=== PATIENT | male | born 1960 | race Caucasian/White ===

== ENCOUNTER 2018-11-05 05:49 | Inpatient (IN) ==
[~2018-11-05 05:49] MED LIST: DOCUSATE 100 MG CAPSULE PO PRN; LIDOCAINE W/ SODIUM BICARB 0.5 ML SYR ONE; Lactated Ringers 1,000 ML PRIMARY IV ONE; Sodium Chloride 0.9% 250 ML ONE; Vancomycin Inj 1gm vial ONE
[2018-11-05] MEDS ORDERED: LIDOCAINE W/ SODIUM BICARB 0.5 ML SYR SUBD ONE (06:00)
[2018-11-05] MEDS ORDERED: Nasal Sanitizer POPSWAB ampule 3 AMP (Nozin) PREOP DOSE ENOS SCH (06:00)
[2018-11-05] MEDS ORDERED: ceFAZolin Inj 2gm (Premix) 2 GM/50 ML BAG IV ONE (06:00)
[2018-11-05] MEDS ORDERED: Lactated Ringers 1,000 ML PRIMARY IV ONE (06:00)
[2018-11-05] MEDS ORDERED: ceFAZolin Inj 3 GM in Sodium Chloride 0.9% 100 ML IV ONE (06:00)
[2018-11-05 06:21] LABS: BILIRUBIN,URINE NEGATIVE (NEG); CLARITY,URINE CLEAR (CLEAR); COLOR,URINE YELLOW (Y); GLUCOSE, URINE (UA) NEGATIVE (NEG); OCCULT BLOOD,URINE NEGATIVE (NEG); PH,URINE 6.5 (5.0-8.5); PROTEIN,URINE NEGATIVE (NEG); UROBILINOGEN,URINE 0.2 EU/dL (0.2)
[2018-11-05 06:30] LABS: URINE SAMPLE TYPE CLEAN CATCH URINE
[2018-11-05 06:31] LABS: BACTERIA,URINE RARE; SQUAMOUS EPITHELIAL CELL,UR MANY; URINE CASTS RARE
[2018-11-05] MEDS ORDERED: LIDOCAINE W/ SODIUM BICARB 0.5 ML SYR ONE (06:45)
[2018-11-05] MEDS ORDERED: LIDOCAINE HCL 1%/EPI 1:100,000 - 20 ML VIAL ONE (06:58)
[2018-11-05] MEDS ORDERED: BUPivacaine Inj 0.5% PF (5mg/ml) 10ml vial ONE ×2 (06:58→08:01)
[2018-11-05] MEDS ORDERED: Sodium Chloride 0.9% vial 10 ML ONE ×3 (06:59→11:20)
[2018-11-05] MEDS ORDERED: BACITRACIN 50,000 UNIT VIAL IRRIG ONE ×3 (06:59→11:20)
[2018-11-05] MEDS ORDERED: BUPIVACAINE 0.25% W/ EPI - 10 ML VIAL ONE (06:59)
[2018-11-05] MEDS ORDERED: LIDOCAINE HCL 2 % 10 ML JELLY URO-JECT TOPICAL ONE ×2 (07:02)
[2018-11-05] MEDS ORDERED: KETOROLAC 30 MG/1 ML VIAL ONE (07:08)
[2018-11-05] MEDS ORDERED: fentaNYL Inj 250 MCG/5 ML VIAL ONE ×3 (07:08→10:52)
[2018-11-05] MEDS ORDERED: ONDANSETRON 4 MG/2 ML VIAL ONE (07:08)
[2018-11-05] MEDS ORDERED: DEXAMETHASONE PF 10 MG/1 ML VIAL ONE (07:08)
[2018-11-05] MEDS ORDERED: LIDOCAINE MPF 2% - 5 ML (20 MG/1 ML) ONE (07:08)
[2018-11-05] MEDS ORDERED: PROPOFOL 10 MG/1 ML (200 MG/20 ML) VIAL IV ONE (07:08)
[2018-11-05] MEDS ORDERED: ROCURONIUM 10 MG/1 ML - 5 ML VIAL IVP ONE (07:10)
[2018-11-05] MEDS ORDERED: SUGAMMADEX SODIUM 200 MG/2 ML VIAL IV ONE (12:07)
[2018-11-05] MEDS ORDERED: ceFAZolin Inj 1 GM in Sodium Chloride 0.9% 100 ML IV ONE (12:08)
[2018-11-05] MEDS ORDERED: ceFAZolin 1 GM VIAL ONE (12:10)
[2018-11-05] MEDS ORDERED: Meperidine Inj 50 MG/ML CARPUJECT IVP PRN (12:27)
[2018-11-05] MEDS ORDERED: LIDOCAINE W/ SODIUM BICARB 0.5 ML SYR SUBD PRN (12:27)
[2018-11-05] MEDS ORDERED: fentaNYL Inj 100 MCG/2 ML VIAL IVP PRN (12:27)
[2018-11-05] MEDS ORDERED: HYDROmorphone 2 MG/1 ML IVP PRN (12:27)
[2018-11-05] MEDS ORDERED: Prochlorperazine Edisylate Inj 10mg/2ml vial IVP PRN ×2 (12:27→13:33)
[2018-11-05] MEDS ORDERED: Metoclopramide Inj 10 MG/2 ML VIAL IVP PRN ×2 (12:27→13:33)
[2018-11-05] MEDS ORDERED: MORPHINE SULFATE 2 MG/1 ML IVP PRN (12:27)
[2018-11-05] MEDS ORDERED: PROMETHAZINE 25 MG/1 ML VIAL IM PRN ×2 (12:27→13:33)
[2018-11-05] MEDS ORDERED: Lactated Ringers 1,000 ML PRIMARY IV SCH (12:30)
--- NOTE | 2018-11-05 12:30 | CRNA.PROGR ---
Anesthesia Recovery Phase I - Post Anesthesia Evaluation Patient's Condition on Arrival in Phase I: Stable (awake,drowsy,pain free) Pain Level: 0
--- NOTE | 2018-11-05 12:30 | CRNA.PROGR ---
Anesthesia Time - Procedure/Recovery Time Start Date: 11/05/18 End Date: 11/05/18 Anesthesia : Time In: 07:41 Anesthesia : Time Out: 12:21 Anesthesia : Total Time: 280 - Total Anesthesia Time Total Anesthesia Time (minutes): 280 - Other Weight: 122.016 kg Height: 6 ft Body Mass Index (BMI): 36.4 Physical Status: P3 Anesthesia Type: General Anesthesia : ET
[2018-11-05] MEDS ORDERED: HYDROmorphone 2 MG/1 ML ONE (12:48)
[2018-11-05] MEDS ORDERED: Ondansetron ODT Tab 4 MG TAB PO PRN (13:33)
[2018-11-05] MEDS ORDERED: DIAZEPAM 10 MG TABLET PO PRN (13:33)
[2018-11-05] MEDS ORDERED: HYDROcodone-APAP 5 MG -325 MG TABLET PO PRN (13:33)
[2018-11-05] MEDS ORDERED: Fleet Enema 133ml RECTAL PRN (13:33)
[2018-11-05] MEDS ORDERED: MAGNESIUM CITRATE 296 ML SOLUTION PO PRN (13:33)
[2018-11-05] MEDS ORDERED: HYDROcodone-APAP 7.5 MG-325 MG TABLET PO PRN (13:33)
[2018-11-05] MEDS ORDERED: ONDANSETRON 4 MG/2 ML VIAL IVP PRN (13:33)
[2018-11-05] MEDS ORDERED: Vancomycin-PHA to Dose IV SCH (13:33)
[2018-11-05] MEDS ORDERED: oxyCODONE-ACETAMINOPHEN 5-325 TAB PO PRN (13:33)
[2018-11-05] MEDS ORDERED: DIAZEPAM 10 MG/2 ML (5 MG/1 ML) CARPUJECT IVP PRN (13:33)
[2018-11-05] MEDS ORDERED: HYDROcodone-APAP 10 MG-325 MG TABLET PO PRN (13:33)
[2018-11-05] MEDS ORDERED: MAGNESIUM 400 MG/5 ML - 30 ML (MILK OF MAGNESIA) PO PRN (13:33)
[2018-11-05] MEDS ORDERED: BISACODYL 5 MG TABLET PO PRN (13:33)
[2018-11-05] MEDS ORDERED: oxyCODONE/APAP 7.5/325 Tab 1 TAB TAB PO PRN (13:33)
[2018-11-05] MEDS: oxyCODONE/APAP 10/325 Tab 1 EACH TAB PO PRN ×3 (14:31→22:33)
[2018-11-05] MEDS: GABAPENTIN 300 MG CAPSULE PO SCH ×3 (15:33→22:33)
--- NOTE | 2018-11-05 17:50 | GEN.OPNOTE ---
Operative Note Surgery Date: 11/05/18 Preoperative Diagnosis: 1. Low back pain. 2. Right hip and right leg pain. 3. Multilevel lumbar degenerative disc disease. 4. Multilevel lumbar spondylosis markedly advanced at the L5-S1 level bilaterally with marked overgrowth of the facet joints and widening of the facet joints. and fluid in the facet joints. 5. Right L5-S1 extruded synovial cyst. 6. Multilevel lumbar congenital canal stenosis with severe central canal stenosis superimposed degenerative changes L5-S1. 7. Severe bilateral lateral recess stenosis L5-S1. 8. Severe right and moderate left L5-S1 neural foraminal stenosis. 9. Status post L5-S1 lumbar laminectomy. Postoperative Diagnosis: 1. Low back pain. 2. Right hip and right leg pain. 3. Multilevel lumbar degenerative disc disease. 4. Multilevel lumbar spondylosis markedly advanced at the L5-S1 level bilaterally with marked overgrowth of the facet joints and widening of the facet joints. and fluid in the facet joints. 5. Right L5-S1 extruded synovial cyst. 6. Multilevel lumbar congenital canal stenosis with severe central canal stenosis superimposed degenerative changes L5-S1. 7. Severe bilateral lateral recess stenosis L5-S1. 8. Severe right and moderate left L5-S1 neural foraminal stenosis. 9. Status post L5-S1 lumbar laminectomy. Procedure: 1.) Anterior approach, L5-S1 discectomy, and anterior arthrodesis L5- S1 interspace for lumbar interbody fusion. (CPT code: 07150-26). 2.) Insertion of a 29 mm x 40 mm x 20 mm 14 degree lordotic Shashank Arcadius XP anterior lumbar interbody cage filled with allograft into the L5-S1 disc space affixed to the L5 and S1 endplates with intrinsic hardware of the cage. (CPT code: 94159). 3.) Use of 2 x 2 cm [employer] Active Barrier (implantable allograft), 1 cc Cerapedics i-FACTOR (implantable allograft), and 12 cc Shashank BIO DBM Plus Putty with cancellous for filling of the anterior lumbar cage. (CPT code: 49361). 4.) Use of intra-operative fluoroscopy for localization of correct surgical level and for confirmation of final position of intervertebral cage and integral screw fixation. 5.) Use of neuromonitoring including EMG's and SSEP's. Surgeon: Vincent Trujillo MD Toolsmith: DANIELLE Dougherty Anesthesia Provider: Carlos Lackey MD Anesthesia Type: General Estimated Blood Loss (mL): 500 Fluids: See anesthesia record Pathology: None Indications: Mr. Moore is a 58 year old gentleman status post a L3-5 laminectomy performed in November [address] Black in [place]. He did well following this surgery and returned to work in February 2018. In April 2018 thru June 2018, Mr. Moore was going to physical therapy which increased his low back pain. Mr. Moore states he has lost 20 pounds and has quit smoking since his last visit. Mr. Moore states he has continued low back pain. He reports he gets shooting pain down both of his legs with the right being worse than the left. He has bilateral foot numbness, on his right side the numbness goes up his ankle. Mr. Moore states his right leg is weak. He had imaging studies that demonstrated multilevel lumbar degenerative disc disease and multilevel lumbar spondylosis with facet arthropathy and hypertrophy moderate in degree at the L3-4 and L4-5 levels, but advanced and marked at the L5-S1 level with widening of the facets and fluid in the facet joints at that level. The study demonstrated multilevel lumbar congenital canal stenosis with persistent severe lumbar central canal stenosis at the L5-S1 level the level of his previous laminectomy with severe right and moderate left neuroforaminal stenosis at this level. Mr. Moore had seen several surgeons with different surgical plans being suggested. We had discussed proceeding with a L5-S1 anterior lumbar interbody fusion with subsequent redo decompression and posterolateral instrumented fusion in a staged fashion. He wished to proceed with the surgical procedures and presents today for the first stage of the procedure. Findings: None Complications: None Operative Summary: Mr. Moore was met in the preoperative area. His surgical history and physical and his surgical chart was reviewed. The procedure to be performed was confirmed with Mr. Moore and we were both in agreement on the procedure to be performed and this matched what was written on his consent form. Any questions of Mr. Moore or family members had were answered before he was taken back to the operating room suite. Mr. Moore was brought back to the operating room suite and moved over onto the surgical bed in supine position. General anesthesia was induced and he was intubated by the anesthesia staff. He had a Bello catheter placed in his bladder for the procedure. He had pneumatic compression hose placed on his lower legs bilaterally. All bony prominences were well padded. His arms were tucked at the sides. Mr. Moore was prepped and draped in the usual and standard fashion. He was given 2 g of Ancef and a gram of vancomycin IV for perioperative antibiosis. A standard surgical timeout was performed identifying the correct patient, the correct procedure, and the correct equipment being being available for the procedure. The anterior exposure to the lumbar spine was performed by Dr. Umang Peacock and that portion of the procedure to be dictated separately by him. With the L5-S1 level now exposed anteriorly from Dr. Peacock's dissection and exposure of the anterior lumbar spine I performed a L5-S1 discectomy by removing the entire L5- S1 disc as well as the annulus posteriorly until the posterior longitudinal ligament was exposed in the very dorsal aspect of the disc space. The disc material was removed laterally bilaterally to the annulus of the disc space. To remove the disc the anterior annulus was incised with a 10 blade scalpel along the anterior inferior L5 endplate and the anterior superior S1 endplate. The disc material was removed with pituitary rongeur as well as a skin punch and by loosening disc material with straight and up angled curettes and the ring curet. Arthrodesis of the L5 and S1 endplates was performed with the large straight curette, the ring curet, and the rasp. The interspace was sized for the appropriate anterior lumbar interbody cage using the trial sizers. The interspace fit the large footprint sizer and to most appropriately fit the disc space a 29 mm x 40 mm x 20 mm 14 lordotic Shashank [place] AP anterior lumbar interbody cage was selected. The cage was filled with a 2 cm x 2 cm [employer] Active Barrier (implantable allograft) which was sandwiched between 1 cc of Cerapdics i-FACTOR (implantable allograft), with both of these products and being sandwiched between 12 mL of Sigel BIO DBM Plus Putty with cancellous. The cage was then inserted into the L5-S1 interspace using the [employer] advertising inserter. AP and lateral radiographic images were obtained. The cage was noted to be somewhat to the left of midline. The cage was removed and reinserted into the disc space more to the right side of the interspace with a subsequent AP fluoroscopic image demonstrating the cage to be more centered in the disc space. The cage was then gently countersunk with a bone tamp and mallet. The cage obtained good purchase between the L5 and S1 endplates. AP and lateral fluoroscopic images were obtained. The cage was then affixed to the L5 and S1 endplates using the 35 mm compression screws. Good purchase was obtained to the L5 and S1 endplates. The screws were tightened until they locked into the anterior aspect of the L5-S1 biomechanical device. Final AP and lateral fluoroscopic images demonstrated the cage against intrinsic hardware of the cage the two rostral screws and draped into the L5 endplate and the two caudal screws entering into the S1 endplates to all be in good position. At this portion of the procedure Dr. Peacock took over and performed the closure of the anterior approach to to the lumbar spine. All surgical drapes were then removed from Mr. Moore. He was carefully moved over onto the PACU stretcher. He was awoken and extubated by the anesthesia staff. He was taken to the recovery room in stable condition. All surgical counts reported as correct by the scrub and circulating personnel. A physician's patient assistant, Mrs. Jenni Wu PA-C, assisted with the procedure including Dr. Álvaro Morse exposure and closure portions of the procedure as well as with my portion of the procedure the L5-S1 discectomy, the arthrodesis of the L5 and S1 endplates, and the placement of the L5-S1 biomechanical device/cage into the L5-S1 interspace. She provided assistance with these portions of the procedure including retraction, irrigation, and suctioning including her assistance with the exposure and closure for the procedure.
[2018-11-05] MEDS: PANTOPRAZOLE 40 MG TABLET PO SCH (17:54)
--- NOTE | 2018-11-05 18:40 | NEURO.PROG ---
Subjective Post Op Day: 0 Pain Management: PO Bello Catheter: Yes Diet: Regular Ambulating: Yes Additional Details: Awake and alert. No complaints. Appears comfortable in bed. Moving all extremities well. Continue post-operative antibiotics. Continue post-operative pain control. Second stage (posterior decompression/instrumentation/fusion) planned for Monday. Objective : Data - Vital Signs Vital Signs and I&O: Vital Signs - Last Taken Temperature 97.3 F 11/05/18 16:24 Pulse Rate 71 11/05/18 16:24 Respiratory Rate 16 11/05/18 16:24 Blood Pressure 124/74 11/05/18 16:24 Pulse Ox 98 11/05/18 16:24 Intake and Output (24hr x 4 totals) 11/03/18 11/04/18 11/05/18 11/06/18 05:59 05:59 05:59 05:59 Intake Total 5690 / 5690 Output Total 1850 / 1850 Balance 3840 / 3840
[2018-11-05] MEDS: ATORVASTATIN 40 MG TABLET PO SCH (21:23)
[2018-11-05] MEDS: ceFAZolin Inj 1 GM in Sodium Chloride 0.9% 100 ML IV SCH (21:24)
--- NOTE | 2018-11-05 21:55 | PDOC ---
HPI - History of Present Illness Date of Service: 11/05/18 Time of Service: 21:49 Chief Complaint: back pain History of Present Illness: This is a very pleasant 58 YO that developed chronic back pain over severalyears. 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 Conservative therapy with PT/OT, injections, shock therapy, did not help. Had a laminectomy last year and healed up well. Went back to work and did well, but then pain got worse. Has been taking tramadol to help with edge of pain, but had first part of anterior posterior fusion today. PT made pain worse. States he quit smoking a month ago on chantix to help his bone healing. Pain prior to surgery already seems better. No chest pain, SOB, or N/V post surgery right now. Has a scratchy throat. Attributes to phlegm from quitting smoking. Currently post operative pain well controlled. Past Medical History Medical History: 1. Gouty arthropathy. 2. CAD, s/p stents, most recently in 2017. 3. KATHIA on CPAP therapy. 4. HTN. 5. Hypercholesterolemia. 6. Chronic back pain Surgical History: 1. heart stents. 2. rotator cuff thrapy. 3. right ankle surgery. 4. back surgery Pertinent Family History: mother alive, had history of stroke, right hemiparesis; father from accident Past Social History: occasional alcoholic beverage, , three children all healthy, lives in [place]. quit smoking a month ago. 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 Tobacco Use: Former Smoker Do you dip or chew tobacco: No In the Past 12 Months, Have Used or Abuse Any of the Following Substance: None Alcohol Use: None Medication / Allergies Home Medications: Home Medications Medication Instructions Recorded Confirmed B-complex with vitamin C tablet 1 tab PO QDAY 08/29/18 11/02/18 allopurinol 300 mg tablet 300 mg PO QDAY 08/29/18 11/02/18 atenolol 25 mg tablet 25 mg PO QDAY 08/29/18 11/02/18 atorvastatin 40 mg tablet 40 mg PO QDAY 08/29/18 11/02/18 bupropion HCl XL 150 mg 24 hr 300 mg PO QAM tab 08/29/18 11/02/18 tablet, extended release chlorthalidone 25 mg tablet 25 mg PO QDAY 08/29/18 11/02/18 citalopram 10 mg tablet 20 mg PO QDAY tab 08/29/18 11/02/18 clopidogrel 75 mg tablet 75 mg PO QDAY 08/29/18 11/02/18 gabapentin 300 mg capsule 300 mg PO TID 08/29/18 11/02/18 multivitamin tablet 1 tab PO QAM 08/29/18 11/02/18 pantoprazole 40 mg tablet,delayed 40 mg PO BID 08/29/18 11/02/18 release potassium chloride ER 10 mEq 10 meq PO QDAY 08/29/18 11/02/18 tablet,extended release ramipril 5 mg capsule 5 mg PO QDAY 08/29/18 11/02/18 tramadol 50 mg tablet 50 mg PO Q6H 08/29/18 11/02/18 Allergies/Adverse Reactions: Allergies Allergy/AdvReac Type Severity Reaction Status Date / Time No Known Allergies Allergy Verified 11/05/18 18:32 Review of Systems - Constitutional Constitutional: REPORTS: Negative System Review - Respiratory Respiratory: REPORTS: Negative System Review - Cardiovascular Cardiovascular: REPORTS: Negative System Review - Gastrointestinal Gastrointestinal / Abdominal: REPORTS: Negative System Review - Genitourinary Genitourinary: REPORTS: Other (remote history of urine infections in youth, last at age 67 years old) - Musculoskeletal Musculoskeletal: REPORTS: Back Pain - Neurological Neurologic: REPORTS: Negative System Review Exam - Vitals Vital Signs: Vital Signs Temperature 98.5 F Temperature Source Temporal Artery Scan Pulse Rate [Pulse Oximeter] 86 Pulse Rate [Pulse Oximeter] 83 Pulse Rate 90 Respiratory Rate 21 Blood Pressure [Left Arm] 121/64 Blood Pressure [Left Arm] 134/81 Blood Pressure 133/76 Pulse Ox 96 Oxygen Flow Rate 2 Oxygen Delivery Method Nasal Cannula Height 6 ft Weight 269 lb - General General Appearance: No Acute Distress, Cooperative - Head Head Exam: Normal Inspection, Normocephalic, Atraumatic - Eye Eye Exam: POSITIVE: No Scleral Icterus - ENT ENT Exam: POSITIVE: Mucous Membranes Moist - Neck Neck Exam: Normal Inspection, No Tenderness, No Lymphadenopathy, No Thyromegaly, JVP is not Raised - Respiratory Respiratory Exam: POSITIVE: Clear to Auscultation - Bilaterally, Breathing Non Labored - Cardiovascular Cardiovascular Exam: POSITIVE: RRR, No Murmur, No Clicks, No Gallops, No Rubs, No JVD - GI/Abdominal GI/Abdominal Exam: POSITIVE: Normal Bowel Sounds, Non Tender, Non Distended, Soft - Rectal Rectal Exam: POSITIVE: Deferred - External Exam: POSITIVE: Deferred Exam: POSITIVE: Deferred - Extremities Extremities Exam: POSITIVE: No Clubbing Present, No Edema Present, No Cyanosis Present - Neurological Neurological Exam: POSITIVE: Alert, Oriented x 3, No Facial Droop, Speech Intact / Clear, Moves All Extremities Equally - Psychiatric Psychiatric Exam: POSITIVE: Normal Affect, Normal Mood Results - Labs Additional Lab Results: Urinalysis on my view is negative review. Assessment and Plan - Patient Problems (1) CAD (coronary artery disease) Current Visit: Yes Status: Acute Code(s): I25.10 - Atherosclerotic heart disease of standing [place] coronary artery without angina pectoris Qualifiers: Coronary Disease-Associated Artery/Lesion type: [place] artery [place] vs. transplanted heart: standing [place] heart Associated angina: without angina Qualified Code(s): I25.10 - Atherosclerotic heart disease of standing [place] coronary artery without angina pectoris (2) HTN (hypertension) Current Visit: Yes Status: Acute Code(s): I10 - Essential (primary) hypertension Qualifiers: Hypertension type: essential hypertension Qualified Code(s): I10 - Essential (primary) hypertension (3) Hypercholesterolemia Current Visit: Yes Status: Acute Code(s): E78.00 - Pure hypercholesterolemia, unspecified (4) Gouty arthropathy Current Visit: Yes Status: Acute Code(s): M10.9 - Gout, unspecified (5) Chronic back pain Current Visit: Yes Status: Acute Code(s): M54.9 - Dorsalgia, unspecified; G89.29 - Other chronic pain Qualifiers: Back pain location: low back pain Back pain laterality: unspecified Sciatica presence: with sciatica Sciatica laterality: sciatica laterality unspecified Qualified Code(s): M54.40 - Lumbago with sciatica, unspecified side; G89.29 - Other chronic pain (6) Hyperthyroidism Current Visit: Yes Status: Chronic Code(s): E05.90 - Thyrotoxicosis, unspecified without thyrotoxic crisis or storm (7) Status post lumbar surgery Current Visit: Yes Status: Acute Code(s): Z98.890 - Other specified postprocedural states - Assessment / Plan Additional Assessment/Plan Details: Adjusted Neurontin to home dose to prevent any withdrawal seizures from this medication from home dose. Resume Chantix when possible. Adjust ramipril to by mouth dosing at nighttime as he takes at home. Medications were loss but we were able to locate that they were locked up in pharmacy and they will start with pharmacy tomorrow after verification including his Chantix which I would like to resume as soon as possible. Thus far, no evidence of any compromise to heart condition post operatively, no completes of chest pain. After posterior approach, would like to resume aspirin when possible.
[2018-11-05] MEDS: RAMIPRIL 2.5 MG CAPSULE PO SCH (22:33)
[2018-11-06] MEDS ORDERED: LIDOCAINE HCL 2 % 10 ML JELLY URO-JECT TOPICAL PRN (01:47)
[2018-11-06] MEDS: oxyCODONE/APAP 10/325 Tab 1 EACH TAB PO PRN ×6 (02:09→21:15)
[2018-11-06] MEDS: ceFAZolin Inj 1 GM in Sodium Chloride 0.9% 100 ML IV SCH (03:53)
[2018-11-06 04:50] LABS: BASOPHILS # (AUTO) 0.01 10*3/UL; BASOPHILS % (AUTO) 0.1 % (0-1); EOSINOPHILS # (AUTO) 0.02 10*3/UL; EOSINOPHILS % (AUTO) 0.2 % (0-8); Hematocrit [HCT] 37.7 % (42.0-52.0); Hemoglobin [HGB] 12.2 g/dL (14.0-18.0); LYMPHOCYTES # (AUTO) 0.77 10*3/uL; MEAN CORPUSCULAR HGB CONC 32.4 g/dL (33-37); MEAN CORPUSCULAR VOLUME 95.7 FL (80-90); MEAN PLATELET VOLUME 11.1 FL (7.4-12.2); MONOCYTES # (AUTO) 0.93 10*3/UL (0.3-0.8); MONOCYTES % (AUTO) 7.6 % (5-15); NEUTROPHILS # (AUTO) 10.42 10*3/UL; NEUTROPHILS % (AUTO) 85.6 % (50-80); RED BLOOD COUNT 3.94 10^6/uL (4.70-6.10)
[2018-11-06 04:52] LABS: BLOOD UREA NITROGEN 14 mg/dL (7-22)
[2018-11-06 05:09] LABS: PLATELET MORPHOLOGY COMMENT NORMAL MORPHOLOGY (NORM); RBC MORPHOLOGY COMMENT NORMAL MORPHOLOGY (NORM); WBC MORPHOLOGY COMMENT NORMAL MORPHOLOGY (NORM)
[2018-11-06] MEDS ORDERED: PANTOPRAZOLE 40 MG TABLET PO SCH (07:00)
--- NOTE | 2018-11-06 07:37 | NEURO.PROG ---
Subjective Post Op Day: 1 Pain Management: PO Jang Catheter: Yes Flatus: Yes Diet: Regular Ambulating: No Additional Details: Dr Trujillo here for rounds. Mr Moore is awake and alert and says he feels good. He states that his pre op symptoms of thigh pain and burning and cold feet are all gone. He is sitting up in bed with breakfast. He is afebrile, VSS, positive bowel sounds, and good bilateral leg strength. Feet are warm to touch with intact dorsalis pedis pulses bilaterally. He states he is ready to proceed tomorrow with stage [address] Peacock called and was given a report. Plan mobilize today, keep jang catheter, shower and NPO after midnight for surgery in AM Objective : Data - Labs CBC and BMP: 11/06/18 04:08 11/06/18 04:08 - Vital Signs Vital Signs and I&O: Vital Signs - Last Taken Temperature 97 F 11/06/18 06:53 Pulse Rate 72 11/06/18 06:53 Respiratory Rate 17 11/06/18 06:53 Blood Pressure 120/73 11/06/18 06:53 Pulse Ox 97 11/06/18 06:53 Intake and Output (24hr x 4 totals) 11/04/18 11/05/18 11/06/18 11/07/18 05:59 05:59 05:59 05:59 Intake Total 6530 / 8271 2190 Output Total 3150 / 3150 Balance 3380 / 5121 2190
[2018-11-06] MEDS: CITALOPRAM 20 MG TABLET PO SCH (08:29)
[2018-11-06] MEDS: PANTOPRAZOLE 40 MG TABLET PO SCH ×2 (08:29→15:38)
[2018-11-06] MEDS: Potassium Chloride Tab 10 MEQ TAB PO SCH (08:29)
[2018-11-06] MEDS: ATENOLOL 25 MG TABLET PO SCH (08:29)
[2018-11-06] MEDS: GABAPENTIN 300 MG CAPSULE PO SCH ×3 (08:30→21:14)
[2018-11-06] MEDS: CHLORTHALIDONE 50 MG TABLET PO SCH (08:30)
[2018-11-06] MEDS: ALLOPURINOL 300 MG TABLET PO SCH (08:30)
[2018-11-06] MEDS: buPROPion XL Tab 150 MG TAB PO SCH (08:30)
[2018-11-06] MEDS: Multivitamin Tab 1 TAB PO SCH (08:30)
[2018-11-06] MEDS ORDERED: RAMIPRIL 2.5 MG CAPSULE PO SCH (09:00)
--- NOTE | 2018-11-06 14:31 | PTI REPORT ---
Thank you for the referral of Nahun Moore. He was seen on 11/06/18 for an inpatient evaluation status post lumbar fusion with an anterior approach. SUBJECTIVE: The patient is a 58-year-old male who underwent a lumbar fusion with an anterior approach yesterday. The patient states that he is doing fairly well this morning. He reports that he did undergo a laminectomy in November of last year which did not help with his symptoms as he has been having symptoms into his right lower extremity and tingling of his bilateral feet. The patient states that since his surgery he is no longer having tingling into his feet and his pain in his right side is doing well but he is complaining of surgical pain but is willing to get up and move around. Per patient's report he is to undergo another lumbar fusion tomorrow with a posterior approach. The patient states that he lives in [place] with his . He states that their home is a muti- level home with eight stairs to get onto the main floor and an additional eight to get up to the bedroom. The patient states that prior to his surgery he was getting around independent of an assistive device and denies any falls in the last three months. PAST MEDICAL HISTORY: Past medical history can be found in the patient's medical record. OBJECTIVE FINDINGS: General observations: The patient was alert and oriented to setting upon PT arrival. The patient was instructed in lumbar precautions prior to transferring from supine to seated edge of bed. The patient was instructed on no bending/lifting/twisting and that he is to wear his abdominal binder at this time whenever he is up and moving. Per surgeon's orders we will get him an [employer]green back brace tomorrow after his posterior approach with the lumbar fusion. Bed mobility: The patient was instructed on how to do a log roll and the patient needed max cueing both tactile and verbal in order to perform a log roll to sit up in bed. The patient was unable to sit all the way up initially due to pain and did also snap the IV on his right hand so we did have to get the nursing staff in to help take care of that. The patient complained of pain at his incision site and soreness and he did need to sit edge of bed for approximately 10 minutes. The patient transferred back into bed and did need mod assist x1 in order to perform a log roll back into bed. Transfers: The patient was able to go from sitting to standing with contact guard assist x1 for safety. A gait belt was placed around him and the patient was able to don the abdominal binder. Ambulation: The patient ambulated approximately 10 feet. He was a little unsteady so he did get a front wheeled walker. The patient was able to step onto and off of the scale with contact guard assist x1 for safety. With the walker the patient was able to ambulate an additional 75 feet with contact guard assist x1 for safety. The patient did need to take rest breaks at times secondary to pain of his abdomen. The patient stated that he was surprised that his feet were warm and that he was not having the pain into his right glut that he was having prior to his surgery. ASSESSMENT: The patient has fair rehab potential secondary to his age. He is to undergo another surgical procedure tomorrow. Problem List: Patient is status post lumbar fusion with anterior approach Short-Term Goals: To be met by discharge from inpatient: Patient will be able to transfer from bed to stand safely and independently. Patient will be able to perform a log roll correctly into and out of bed independently. Patient will be able to don and doff brace independently. Patient will be able to ambulate at least 150 feet safely and independently with least restrictive assistive device. Patient will be able to ascend and descend one flight of stairs safely with assistive device. Long-Term Goals: To be met following discharge from inpatient: Patient will undergo surgery tomorrow and we will assess where he is at at that point. Outpatient therapy may be appropriate for the patient once he is fully discharged. TREATMENT PLAN: Patient will be seen B.I.D during the week and one time per day over the weekend as an inpatient to address the above goals and objectives. We will reassess after the patient has his other surgery tomorrow and make any necessary adjustments to our goals. INITIAL TREATMENT: Treatment today consisted of the initial evaluation and one unit of functional activity. Following treatment the patient was left in bed. SCDs were placed back around the patient and his call light was placed within reach. [facility]ITALPatricia
--- NOTE | 2018-11-06 14:53 | PDOC(PROG) ---
Date of Service: 11/06/18 Time of Service: 14:50 Interval History: patient seen and evaluated earlier today no chest pain, no SOB, no nausea or vomiting. pain controlled states pain presurgery has resolved. Objective : Data - Labs CBC and BMP: 11/06/18 04:08 11/06/18 04:08 Objective : Exam - General General Appearance: No Acute Distress, Cooperative Additional General Exam Details: Vital Signs - Last Taken Temperature 98.1 F 11/06/18 11:14 Pulse Rate 61 11/06/18 11:14 Respiratory Rate 17 11/06/18 11:14 Blood Pressure 115/68 11/06/18 11:14 Pulse Ox 95 11/06/18 11:14 - Eye Eye Exam: No Scleral Icterus - ENT ENT Exam: Mucous Membranes Moist - Neck Neck Exam: JVP is not Raised - Respiratory Respiratory Exam: Clear to Auscultation - Bilaterally, Breathing Non Labored - Cardiovascular Cardiovascular Exam: RRR, No Murmur, No Clicks, No Gallops, No Rubs, No JVD - GI/Abdominal GI/Abdominal Exam: Normal Bowel Sounds, Non Tender, Non Distended, Soft - Extremities Extremities Exam: No Edema Present - Neurological Neurological Exam: Alert, Oriented x 3, No Facial Droop, Speech Intact / Clear, Moves All Extremities Equally Assessment and Plan - Patient Problems (1) CAD (coronary artery disease) Current Visit: Yes Status: Acute Code(s): I25.10 - Atherosclerotic heart disease of [place] coronary artery without angina pectoris Qualifiers: Coronary Disease-Associated Artery/Lesion type: [place] artery [place] vs. transplanted heart: [place] heart Associated angina: without angina Qualified Code(s): I25.10 - Atherosclerotic heart disease of [place] coronary artery without angina pectoris (2) HTN (hypertension) Current Visit: Yes Status: Acute Code(s): I10 - Essential (primary) hypertension Qualifiers: Hypertension type: essential hypertension Qualified Code(s): I10 - E ssential (primary) hypertension (3) Hypercholesterolemia Current Visit: Yes Status: Acute Code(s): E78.00 - Pure hypercholesterolemia, unspecified (4) Gouty arthropathy Current Visit: Yes Status: Acute Code(s): M10.9 - Gout, unspecified (5) Chronic back pain Current Visit: Yes Status: Acute Code(s): M54.9 - Dorsalgia, unspecified; G89.29 - Other chronic pain Qualifiers: Back pain location: low back pain Back pain laterality: unspecified Sciatica presence: with sciatica Sciatica laterality: sciatica laterality unspecified Qualified Code(s): M54.40 - Lumbago with sciatica, unspecified side; G89.29 - Other chronic pain (6) Hyperthyroidism Current Visit: Yes Status: Chronic Code(s): E05.90 - Thyrotoxicosis, unspecified without thyrotoxic crisis or storm (7) Status post lumbar surgery Current Visit: Yes Status: Acute Code(s): Z98.890 - Other specified postprocedural states - Assessment / Plan Additional Assessment/Plan Details: no change to plan from hospitalist side PT and OT surgery per Dr. Trujillo resume aspirin post surgery when possible for CAD
--- NOTE | 2018-11-06 15:11 | OTI REPORT ---
Thank you for the referral of Nahun Moore. He was seen on 11/06/18 for an occupational therapy inpatient evaluation status post lumbar fusion. SUBJECTIVE: The patient is a 58-year-old male. The patient is from [place], [place]. His family was present during the session today. Prior to admission the patient had undergone a laminectomy last year in November. Currently the patient had an anterior approach lumbar fusion and tomorrow he will receive a lumbar fusion with a posterior approach. The patient does have stairs to enter his home. They do have a chair that is already installed in their shower, but they do need handles around the higher toilet as she states there is nothing for him to hang onto when trying to complete sit to stands. The patient reports his pain is a 6/10 on the verbal analog scale (0=no pain, 10=worst pain). His goal is to be able to go home and recover and to be able to complete simple ADLs independently. PAST MEDICAL HISTORY: Past medical history can be found in the patient's medical record. OBJECTIVE FINDINGS: Bed mobility: The patient was able to come from supine to sit with mod assist. He had difficulty with his log rolling and his pain increased to an 8/10 when sitting edge of bed. Nursing staff did have to come in to work on his IVs. Activities of daily living: The patient was instructed on how to use the line director and a sock aide. He was able to use both with moderate verbal cues. He was also issued a bath sponge and a shoe horn for increased independence with ADLs at home. The patient did receive toilet handles that will be installed on the back of the higher toilet seat in order for the patient to be able to come from sit to stand while pushing off handles. Ambulation: The patient ambulated to the sink to complete hygiene activities x2 minutes. Endurance: The patient does fatigue easily. ASSESSMENT: Problem List: Patient would benefit from education on adaptive devices for lower extremity dressing Decreased ability to complete functional transfers Decreased ability to complete ADLs Short-Term Goals: To be met by discharge from inpatient: Patient will be able to use adaptive devices to complete lower extremity dressing with modified independence. Patient will be able to complete all functional transfers with stand by assist. Patient will be able to complete log rolling in bed independently. Patient will be able to don and doff brace independently. Long-Term Goals: To be met following discharge from inpatient: Patient will return home, demonstrating independence and safety with ADLs and functional transfers. TREATMENT PLAN: Patient will be seen B.I.D during the week and one time per day over the weekend as an inpatient to address the above goals and objectives. INITIAL TREATMENT: Treatment today consisted of the initial evaluation followed by the patient completing lower extremity dressing with adaptive devices and log rolling from supine to sit. The patient then functionally transferred to the sink. The patient did have some shooting pain down the leg when doing this even with his brace on. He will be going in for surgery tomorrow. He would benefit from a session after his surgery to make sure that he can still use adaptive devices appropriately and independently. HUI
--- NOTE | 2018-11-06 15:50 | PT.PROG ---
Progress Note Progress Note: S. Patient stated he is feeling alright this afternoon, he agreed to go for a walk. O. Patient ambulated 200 feet in the rudd and back to his room where he was left in his chair with alarm and call light. A. Patient tolerated ambulation well, he was able to ambulate with stand by guard assist. Patient would benefit from skilled therapy to increase strength and mobility. P. Continue POC.
[2018-11-06] MEDS ORDERED: SIMETHICONE 80 MG TABLET PO PRN (17:30)
[2018-11-06] MEDS: MORPHINE SULFATE 2 MG/1 ML IVP PRN ×2 (18:15→22:12)
[2018-11-06] MEDS: ATORVASTATIN 40 MG TABLET PO SCH (21:14)
[2018-11-06] MEDS: RAMIPRIL 2.5 MG CAPSULE PO SCH (21:15)
[2018-11-06] MEDS ORDERED: VARENICLINE 1 MG PO SCH (22:00)
[2018-11-06] MEDS: VARENICLINE PO SCH (22:55)
[2018-11-07] MEDS: oxyCODONE/APAP 10/325 Tab 1 EACH TAB PO PRN ×2 (01:23→05:14)
--- NOTE | 2018-11-07 06:05 | NEURO.PROG ---
Subjective Post Op Day: 2 Bello Catheter: Yes Flatus: Yes Diet: NPO Ambulating: Yes Additional Details: Mr Moore is awake and alert. States he feels ready for his surgery today. He has been NPO since midnight. He has had a low grade temp and we talked about being up and around this morning and working with his incentive spirometer. His abdomen is soft and non tender, with positive bowel sounds. States he feels like he needs to have a BM. His feet are warm with bilateral pulses and he says that his preop pain and burning symptoms in his thighs and buttocks are still gone. Plan this morning to mobilize, use his incentive spirometer and shower in preparation for surgery later today. Objective : Data - Labs CBC and BMP: 11/06/18 04:08 11/06/18 04:08 - Vital Signs Vital Signs and I&O: Vital Signs - Last Taken Temperature 99.1 F 11/07/18 05:00 Pulse Rate 83 11/07/18 05:00 Respiratory Rate 16 11/07/18 05:00 Blood Pressure 120/71 11/07/18 05:00 Pulse Ox 95 11/07/18 05:00 Intake and Output (24hr x 4 totals) 11/04/18 11/05/18 11/06/18 11/07/18 05:59 05:59 05:59 05:59 Intake Total 6530 / 8271 5442 / 5442 Output Total 3150 / 3150 2400 / 2400 Balance 3380 / 5121 3042 / 3042
[2018-11-07] MEDS ORDERED: Lactated Ringers 1,000 ML PRIMARY IV ONE ×3 (07:33→10:59)
[2018-11-07] MEDS: PANTOPRAZOLE 40 MG TABLET PO SCH (07:47)
[2018-11-07] MEDS: ATENOLOL 25 MG TABLET PO SCH (08:03)
[2018-11-07] MEDS: CHLORTHALIDONE 50 MG TABLET PO SCH (08:53)
[2018-11-07] MEDS: GABAPENTIN 300 MG CAPSULE PO SCH (08:53)
[2018-11-07] MEDS: Potassium Chloride Tab 10 MEQ TAB PO SCH (08:53)
[2018-11-07] MEDS: CITALOPRAM 20 MG TABLET PO SCH (08:53)
[2018-11-07] MEDS: Multivitamin Tab 1 TAB PO SCH (08:54)
[2018-11-07] MEDS: buPROPion XL Tab 150 MG TAB PO SCH (08:54)
[2018-11-07] MEDS: VARENICLINE PO SCH (08:54)
[2018-11-07] MEDS: ALLOPURINOL 300 MG TABLET PO SCH (08:54)
[2018-11-07] MEDS ORDERED: ceFAZolin Inj 3 GM in Sodium Chloride 0.9% 100 ML IV ONE (10:09)
[2018-11-07] MEDS ORDERED: Sodium Chloride 0.9% 1,000 ML PRIMARY IV ONE (10:17)
[2018-11-07] MEDS ORDERED: PROPOFOL 10 MG/1 ML (200 MG/20 ML) VIAL IV ONE (10:18)
[2018-11-07] MEDS ORDERED: fentaNYL Inj 250 MCG/5 ML VIAL ONE ×3 (10:21→20:14)
[2018-11-07] MEDS ORDERED: LIDOCAINE W/ SODIUM BICARB 0.5 ML SYR ONE ×2 (10:59→11:21)
--- NOTE | 2018-11-07 11:12 | PDOC(PROG) ---
Date of Service: 11/07/18 Time of Service: 10:20 Interval History: No chest pain, shortness breath, nausea or vomiting Has been passing gas but no stool since admission. Objective : Data - Labs CBC and BMP: 11/06/18 04:08 11/06/18 04:08 Objective : Exam - General General Appearance: No Acute Distress, Cooperative Additional General Exam Details: Vital Signs - Last Taken Temperature 98.4 F 11/07/18 09:00 Pulse Rate 82 11/07/18 09:00 Respiratory Rate 16 11/07/18 05:00 Blood Pressure 98/54 11/07/18 09:00 Pulse Ox 95 11/07/18 09:00 - Eye Eye Exam: No Scleral Icterus - ENT ENT Exam: Mucous Membranes Moist - Neck Neck Exam: JVP is not Raised - Respiratory Respiratory Exam: Clear to Auscultation - Bilaterally, Breathing Non Labored - Cardiovascular Cardiovascular Exam: RRR, No Murmur, No Clicks, No Gallops, No Rubs, No JVD - GI/Abdominal GI/Abdominal Exam: Normal Bowel Sounds, Non Tender, Non Distended, Soft Additional GI/Abdominal Exam Details: Incision is dressed, incision is clean, dry, intact - Exam: Bello Catheter in Place (Urine in Bello looks clear) - Extremities Extremities Exam: No Clubbing Present, No Edema Present, No Cyanosis Present - Neurological Neurological Exam: Alert, Oriented x 3, No Facial Droop, Speech Intact / Clear, Moves All Extremities Equally - Psychiatric Psychiatric Exam: Normal Affect, Normal Mood Assessment and Plan - Patient Problems (1) CAD (coronary artery disease) Current Visit: Yes Status: Acute Code(s): I25.10 - Atherosclerotic heart disease of [place] coronary artery without angina pectoris Qualifiers: Coronary Disease-Associated Artery/Lesion type: [place] artery [place] vs. transplanted heart: [place] heart Associated angina: without angina Qualified Code(s): I25.10 - Atherosclerotic heart disease of [place] coronary artery without angina pectoris (2) HTN (hypertension) Current Visit: Yes Status: Acute Code(s): I10 - Essential (primary) hypertension Qualifiers: Hypertension type: essential hypertension Qualified Code(s): I10 - Essential (primary) hypertension (3) Hypercholesterolemia Current Visit: Yes Status: Acute Code(s): E78.00 - Pure hypercholesterolemia, unspecified (4) Gouty arthropathy Current Visit: Yes Status: Acute Code(s): M10.9 - Gout, unspecified (5) Chronic back pain Current Visit: Yes Status: Acute Code(s): M54.9 - Dorsalgia, unspecified; G89.29 - Other chronic pain Qualifiers: Back pain location: low back pain Back pain laterality: unspecified Sciatica presence: with sciatica Sciatica laterality: sciatica laterality unspecified Qualified Code(s): M54.40 - Lumbago with sciatica, unspecified side; G89.29 - Other chronic pain (6) Hyperthyroidism Current Visit: Yes Status: Chronic Code(s): E05.90 - Thyrotoxicosis, unspecified without thyrotoxic crisis or storm (7) Status post lumbar surgery Current Visit: Yes Status: Acute Code(s): Z98.890 - Other specified postprocedural states - Assessment / Plan Additional Assessment/Plan Details: No chest pain. Would like to resume aspirin when possible postop, hopefully in the next 1-2 days. Try and get the Bello catheter out after the surgery once patient's mobilized. No change to medications for primary medical issues.
[2018-11-07] MEDS ORDERED: fentaNYL Inj 100 MCG/2 ML VIAL IVP PRN (11:31)
[2018-11-07] MEDS ORDERED: LIDOCAINE W/ SODIUM BICARB 0.5 ML SYR SUBD ONE (11:40)
[2018-11-07] MEDS: Lactated Ringers 1,000 ML PRIMARY IV SCH (11:42)
[2018-11-07] MEDS ORDERED: BACITRACIN 50,000 UNIT VIAL IRRIG ONE ×2 (12:25→19:18)
[2018-11-07] MEDS ORDERED: Gentamicin Inj 40 MG/ML VIAL ONE (12:25)
[2018-11-07] MEDS ORDERED: Sodium Chloride 0.9% vial 30 ML ONE (12:25)
[2018-11-07] MEDS ORDERED: BUPIVACAINE 0.25% W/ EPI - 10 ML VIAL ONE (12:25)
[2018-11-07] MEDS ORDERED: Vancomycin Inj 1gm vial ONE (12:25)
[2018-11-07] MEDS ORDERED: LIDOCAINE HCL 2 % 10 ML JELLY URO-JECT TOPICAL ONE (12:29)
[2018-11-07] MEDS ORDERED: Hetastarch 6% + NS 500 ML IV ONE (13:01)
[2018-11-07] MEDS ORDERED: Sodium Chloride 0.9% vial 10 ML ONE ×2 (13:31→19:18)
[2018-11-07] MEDS ORDERED: ROCURONIUM 10 MG/1 ML - 5 ML VIAL IVP ONE (14:42)
[2018-11-07] MEDS ORDERED: BUPivacaine Inj 0.25% PF - 10ml vial ONE ×2 (20:13→20:50)
[2018-11-07] MEDS ORDERED: BUPivacaine Liposome/PF (Exparel) Inj 20ml vial INFIL ONE ×2 (20:14→20:50)
--- NOTE | 2018-11-07 21:33 | CRNA.PROGR ---
Anesthesia Time - Procedure/Recovery Time Start Date: 11/07/18 End Date: 11/07/18 Anesthesia : Time In: 12:29 Anesthesia : Time Out: 21:41 Anesthesia : Total Time: 552 - Total Anesthesia Time Total Anesthesia Time (minutes): 552 - Other Weight: 129.274 kg Height: 6 ft Body Mass Index (BMI): 38.6 Physical Status: P3 Anesthesia Type: General Anesthesia : ET (stable at patient handoff PACU)
[2018-11-07] MEDS: HYDROmorphone 2 MG/1 ML IVP PRN ×4 (21:35→22:08)
[2018-11-07] MEDS ORDERED: LIDOCAINE W/ SODIUM BICARB 0.5 ML SYR SUBD PRN (21:35)
--- NOTE | 2018-11-07 21:35 | CRNA.PROGR ---
Anesthesia Recovery Phase I - Post Anesthesia Evaluation Patient's Condition on Arrival in Phase II: Stable Pain Level: 5 ([facility], follow up at patient surgeon request prn)
--- NOTE | 2018-11-07 21:35 | CRNA.PROGR ---
Anesthesia Note - Progress Notes Anesthesia Progress Note: [facility], follow up at pt surgeon request prn
[2018-11-07] MEDS ORDERED: HYDROmorphone 2 MG/1 ML ONE ×2 (21:36→21:48)
--- NOTE | 2018-11-07 21:40 | GEN.OPNOTE ---
Operative Note Surgery Date: 11/07/18 Preoperative Diagnosis: 1. Low back pain. 2. Right hip and right leg pain. 3. Multilevel lumbar degenerative disc disease. 4. Multilevel lumbar spondylosis markedly advanced at the L5-S1 level bilaterally with marked overgrowth of the facet joints and widening of the facet joints. and fluid in the facet joints. 5. Right L5-S1 extruded synovial cyst. 6. Multilevel lumbar congenital canal stenosis with severe central canal stenosis superimposed degenerative changes L5-S1. 7. Severe bilateral lateral recess stenosis L5-S1. 8. Severe right and moderate left L5-S1 neural foraminal stenosis. 9. Status post L5-S1 lumbar laminectomy. Postoperative Diagnosis: 1. Low back pain. 2. Right hip and right leg pain. 3. Multilevel lumbar degenerative disc disease. 4. Multilevel lumbar spondylosis markedly advanced at the L5-S1 level bilaterally with marked overgrowth of the facet joints and widening of the facet joints. and fluid in the facet joints. 5. Right L5-S1 extruded synovial cyst. 6. Multilevel lumbar congenital canal stenosis with severe central canal stenosis superimposed degenerative changes L5-S1. 7. Severe bilateral lateral recess stenosis L5-S1. 8. Severe right and moderate left L5-S1 neural foraminal stenosis. 9. Status post L5-S1 lumbar laminectomy. Procedure: 1.) Redo partial L4 laminectomy with medial facetectomies and foraminotomies bilaterally. (CPT code: 03097). 2.) Redo L5 laminectomy with medial facetectomies and foraminotomies bilaterally. (CPT code: 05514). 3.) Partial S1 laminenectomy with medial facetectomies and foraminotomies bilaterally. (CPT code: 10161). 4.) Posterolateral arthrodesis, L5 bilaterally in preparation for posterolateral fusion. (CPT code: 57196. 5.) Posterolateral arthrodesis, S1 bilaterally in preparation for posterolateral fusion. (CPT code: 19071). 6.) Non-segmental instrumentation, L5-S1 using Clear2Pay Dillan 3 pedicle screw and johnny system. (CPT code: 67492). 7.) Use of autograft harvested from the same incision, cleaned of soft tissue and morselized for posterolateral fusion. (CPT code: 94144). 8.) Use of 10 cc Clear2Pay Vitoss Bimodal Bioactive Synthetic Bone Graft Substitute (implantable allograft), and 20 cc of Clear2Pay BIO DBM Plus Putty with cancellous (implantable allograft) for posterolateral fusion. (CPT code: 57315). 9.) Use of Clear2Pay computer assisted Neuronavigation system for the cannulization of the L5 and S1 pedicles bilaterally for the subsequent placement of the L5 and S1 pedicle screws bilaterally. (CPT code: 06117). 10.) Use of intra-operative fluoroscopy for localization of correct surgical level and for confirmation of final position of posterolateral hardware elements. 11.) Use of intra-operative monitoring including EMG's and SSEP's. Surgeon: Vincent Trujillo MD Appeals Board Referee: DANIELLE Dougherty Anesthesia Provider: Camden Hassan MD Anesthesia Type: General Estimated Blood Loss (mL): 600 Fluids: See anesthesia record Pathology: None Indications: Mr. Moore is a 58 year old gentleman status post a L3-5 laminectomy performed in November [address] Black in [place]. He did well following this surgery and returned to work in February 2018. In April 2018 thru June 2018, Mr. Patricia dawn was going to physical therapy which increased his low back pain. Mr. Moore states he has lost 20 pounds and has quit smoking since his last visit. Mr. Moore states he has continued low back pain. He reports he gets shooting pain down both of his legs with the right being worse than the left. He has bilateral foot numbness, on his right side the numbness goes up his ankle. Mr. Moore states his right leg is weak. He had imaging studies that demonstrated multilevel lumbar degenerative disc disease and multilevel lumbar spondylosis with facet arthropathy and hypertrophy moderate in degree at the L3-4 and L4-5 levels, but advanced and marked at the L5-S1 level with widening of the facets and fluid in the facet joints at that level. The study demonstrated multilevel lumbar congenital canal stenosis with persistent severe lumbar central canal stenosis at the L5-S1 level the level of his previous laminectomy with severe right and moderate left neuroforaminal stenosis at this level. Mr. Moore had seen several surgeons with different surgical plans being suggested. We had discussed proceeding with a L5-S1 anterior lumbar interbody fusion with subsequent redo decompression and posterolateral instrumented fusion in a staged fashion. He wished to proceed with the surgical procedures. The first stage of the surgery, a L5-S1 ALIF was performed November 05. The second part of the surgical procedure, redo posterior decompression and posterolateral L5-S1 instrumented fusion is to be performed today. Findings: 1.) Severe L4-S1 central canal stenosis and bilateral lateral recess and neuroforaminal stenosis. 2.) Right L5-S1 synovial cyst. 3.) Extensive extruded synovial tissue matted and heavy scared to the dura centrally and in the lateral recesses L4-5 & L5-S1 bilaterally. Complications: None Operative Summary: Mr. Moore was met in the preoperative area. His surgical history and physical in his surgical chart was reviewed. The procedure to be performed was confirmed with Mr. Moore and we were in agreement on the procedure to be performed and this matched what was written on the patient's consent form. Any questions that Mr. Moore or his had were answered before he was taken back to the operating room suite. Mr. Moore was brought back to the operating room suite. He was put under general anesthesia and intubated by the anesthesia staff. He had a Bello catheter placed in his bladder for the procedure. He had pneumatic compression hose placed on his lower legs bilaterally. Mr. Moore was carefully rolled over onto the Andi surgical table with his arms gently positioned upwards with his shoulders abducted less than 90. His arms were well-padded with foam padding on top of the padding of the surgical armboards. The region of his chest and axilla was checked bilaterally to make sure that there were no pressure points over the region of the brachial plexus bilaterally. His nipples were checked be below the chest pad of the Andi table with no pressure points over the nipples. All bony prominences were well padded. His Bello catheter was checked be free from kinks. His pneumatic compression hose was attached and pneumatic compression device. The C-arm fluoroscopy unit was used to help localize the amount of or extension needed to Mr. Moore's incision from his previous surgical procedures to expose the intended surgical levels. The intended skin incision was marked with a skin marker was several crosshatches. Mr. Moore was prepped and draped in the usual and standard fashion. He was given 2 g of Ancef and a gram of vancomycin IV for perioperative antibiosis. He was given 10 mg of Decadron IV. The intended skin incision was injected subcutaneously with quarter percent Marcaine with 1 in 200,000 epinephrine. The intended skin incision was incised with 10 blade scalpel and all dermal and superficial bleeding points controlled with bipolar cautery. Dissection was continued through the subcutaneous tissue and scar tissue from the patient's previous surgeries down to the fascia. The fascia was incised with Bovie cautery and dissection proceeded ventrally through the scar tissue. At the rostral aspect of the dissection a spinous process was identified and subperiosteal dissection was performed down the spinous process and out over the lamina bilaterally. Dissection more caudally in the region of the scar tissue from the patient's previous surgeries was taken more laterally as the dissection proceeded ventrally to avoid entering into the spinal canal and previously decompressed regions. During the dissection the very marked hypertrophied L5-S1 facet joints were encountered. Dissection was very carefully performed medial to the markedly hypertrophied facet joints to identify the lateral extent of the previous bony decompression at this level with a fairly minimal medial decompression being having evidently during his previous surgery. The posterior aspect of the massive bilateral L5-S1 facet joints were removed with a large Leksell rongeur. The anatomy was somewhat difficult to interpret for the potential entry sites of the pedicle screws secondary to the large overgrowth of the L5-S1 facets not only posteriorly/dorsally that had been removed with a large Leksell rongeur but also laterally and caudally. Further dissection was continued however exposing the remainder of the L5 lamina bilaterally, the remainder of the L4 lamina bilaterally, and the upper aspect of the sacrum bilaterally. Lateral dissection exposed the L5 transverse process and the sacral alar bilaterally. Extensive decortication was performed of the L5 transverse processes bilaterally as well as the lateral aspect of the L4-5 and L5-S1 facet joints bilaterally (with the posterior aspect of the L5-S1 facet joints already having been decorticated by the removal of the hypertrophied dorsal aspect of the facet join ts with the large Leksell rongeur), and the upper part of the sacrum and sacral alar bilaterally. The decortication was performed with the [employer] high-speed electric drill with a matchstick bit. The bone dust created was collected and saved to be used as autograft during the posterior lateral fusion portion of the procedure. The Clear2Pay neuro navigation reference arc was securely attached to the L4 spinous process and a spin was performed with the [employer] 3-D fluoroscopy unit. The Clear2Pay neuro navigation pedicle finder was then used to cannulate the L5 and the S1 pedicles bilaterally. The pedicles were all palpated with a small ball-tip instrument to assure that there were no cortical breaches. A Jamshidi needle was placed into the L5 pedicle on the left and advanced into the vertebral body and 10 mL of vertebral body bone marrow was collected and saved to be used to saturate the 10 mL of [place] Vitoss Bimodal synthetic substitute bone graft (implantable allograft) intended for the posterior lateral fusion portion of the procedure. The L5 and S1 pedicles were then tapped bilaterally with the appropriate size Shashank Dillan 3 pedicle tap. The internal aspect of all pedicles were then palpated again with a small ball-tip instrument. The pedicle screws were then placed. 6.5 x 65 mm pedicles srews were placed in the L5 pedicles bilaterally and 7.5 x 45 mm pedicle screws were placed into the S1 pedicles bilaterally. The pedicle screws obtained good purchase in the pedicle and vertebral body bone. The pedicle screws were then interrogated with triggered EMGs and they all demonstrated sufficiently high impedance indicating that they were not proximity to nerve structures. Another spin was performed with the 3-D fluoroscopy unit providing further confirmation that the pedicle screws were all contained within the confines of the pedicles at each level bilaterally and that the pedicle screws were all bicortical or nearly bicortical in purchase as intended. Attention was turned to the decompression portion of the procedure. The thick mat of scar tissue in the region of the previous decompression was spared down the large Leksell rongeur. The scar tissue at the lateral aspects of the bony edges of the previously removed lamina was carefully dissected from the bone edges using straight and up angled curettes. A redo L5 laminectomy with medial facetectomies and foraminotomies was then performed bilaterally removing the lateral aspects of the lamina overhanging the lateral aspects of the canal and lateral recesses bilaterally that had not been removed during the patient's previous decompression. Surgical findings included severe central canal stenosis at this level secondary to the remaining aspect of the lamina as well as hypertrophy of the medial aspect of the L5-S1 facet joints into the lateral recesses bilaterally and extruded synovial tissue in the lateral recesses bilaterally. Much of this extruded synovial tissue in the lateral recesses bilaterally extended posteriorly as well over the posterior aspect of the dura and scar tissue from the previous medial decompression. The canal and lateral recess stenosis continued caudally under the S1 lamina and a partial S1 laminectomy with medial facetectomies bilaterally was performed to decompress the canal and lateral recesses in this region with the synovial tissue extended caudally into the lateral recesses and this region and during this dissection the right posterior lateral synovial cyst was encountered and carefully dissected from the dura and removed. The central canal lateral recess stenosis was also evident rostrally proceeding underneath the region of the previous partial L4 laminectomy again which was only a very medial laminectomy from the patient's previous surgery and a redo L4 laminectomy with medial facetectomies and foraminotomies was performed. This exposed normal dura and a plane was able to be established between the dura and the scar formed from the reactive changes from the surrounding extruded synovial tissue in the lateral recesses and the scar tissue from the previous medial decompressions and this thick coating of scar tissue was carefully peeled away from the dura from rostrally to caudally however in the region of where the leading edge of the S1 lamina had been removed this scar tissue was more adherent to the dura creating a very small area approximately 1-2 mm of a partial-thickness dural tear in the midline posteriorly with the inner dural layer intact and the arachnoid layer underneath intact with no leakage of CSF. When this occurred the thick coating was excised with a 15 blade scalpel just rostral by a few millimeters to this partial thickness dural tear such that this area would be covered. At this point excellent decompression of the spinal canal lateral recesses nerve foramen and exiting L4 and L5 nerve roots and transversing S1 nerve roots was assured both by visual inspection as well as by palpation with a [place] instrument in the canal in the lateral recesses and around the nerve structures. Attention was turned back to the instrumentation portion of the procedure. A 6.0 x 40 mm pre-bent lordotic Berwick titanium johnny was selected and placed into the [place] of the L5 and S1 pedicle screws on the right and a 6.0 x 50 mm pre- bent lordotic Shashank titanium johnny was selected and placed into the [place] of the L5 and S1 pedicle screws on the left. Set screws were placed over the rods in the [place] of the L5 and S1 pedicle screws bilaterally and tightened down hand tight. The set screws were then tightened down to their final tightness using the torque counter torque device. The surgical site was then pulse lavaged with 3 L of the vancomycin/bacitracin/gentamicin solution. The 10 mL of [place] Vitoss Bimodal synthetic bone graft substitute (implantable allograft) saturated in 10 mL of vertebral body bone marrow was then split with half of this product being placed lateral to the hardware construct from the L5 transverse process to the sacral alar and over the upper part of the sacrum bilaterally. 10 mL of [place] BIO DBM Plus Putty with cancellous (implantable allograft) was then mixed with the remaining autograft and split with half of this product being placed lateral to the hardware construct over the Vitoss synthetic bone graft substitute from the L5 transverse process to the sacral alar and over the upper part of the sacrum bilaterally. The canal lateral recesses were inspected for any bone product. Any identified was removed with a forceps. The canal and lateral recesses were irrigated with a small amount of bacitracin irrigation which was removed with suction. The small flap of the remaining scar tissue over the partial-thickness tiny durotomy was then completely sealed with Tisseel also sealing the remainder of the exposed dura in the exposed canal and lateral recesses bilaterally. A piece of compressed Gelfoam was placed over the exposed canal once the Tisseel headset. FloSeal hemostatic agent was placed over the compressed Gelfoam. The surgical self-retaining retractors were removed. This hemostasis was performed by coagulating any bleeding points of the tissue dissection planes now released from their retraction were coagulated with bipolar cautery. The surgical site was quite dry. The closure portion of the procedure was begun. The lumbosacral fascia was closed tightly with #1 Vicryl suture in an interrupted fashion. The surgical site was irrigated again with bacitracin irrigation. A medium Hemovac drain was placed above the fascia. The deep subcutaneous tissue was reapproximated with 2-0 Vicryl suture in an interrupted fashion. The more superficial subcutaneous tissue was reapproximated with 2-0 Vicryl suture in an interrupted fashion as well. The dermis and superficial subcutaneous tissue was reapproximated with 3-0 Vicryl suture in an inverted interrupted fashion. The [place] drape was pulled back from the skin edges and the skin edges were reapproximated with surgical stainless steel thu. The incision was cleansed with bacitracin soaked sponge and dried with sterile dry sponge. Upper vena suction dressing was applied to the incision. The surgical drain was secured with suture. The drain site was dressed. All surgical drapes removed from Mr. Moore. He was carefully rolled over onto the PACU stretcher. He was awoken and extubated by the anesthesia staff. He was taken the recovery room in stable condition. All surgical counts reported as correct by the scrub and circulating personnel. A Physician's Appeals Board Referee, Ms. Jenni Wu PA-C, assisted with the procedure including the exposure and closure portions of the procedure. She also provided irrigation and suctioning throughout the procedure.
[2018-11-07] MEDS ORDERED: DIAZEPAM 10 MG/2 ML (5 MG/1 ML) CARPUJECT ONE (21:43)
--- NOTE | 2018-11-07 22:22 | NEURO.PROG ---
Subjective Post Op Day: 2/0 Additional Details: Waking up in PACU. Facial swelling but getting better. Following commands. Moving all extremities well. Full dorsiflexion/plantarflexion bilaterally. Transfer to med/surg floor when parameters met. Continue post-operative antibiotics. Continue post-operative pain control. Advance diet. Mobilize. Objective : Data - Labs CBC and BMP: 11/06/18 04:08 11/06/18 04:08 - Vital Signs Vital Signs and I&O: Vital Signs - Last Taken Temperature 98.4 F 11/07/18 09:00 Pulse Rate 82 11/07/18 09:00 Respiratory Rate 16 11/07/18 05:00 Blood Pressure 98/54 11/07/18 09:00 Pulse Ox 95 11/07/18 09:00 Intake and Output (24hr x 4 totals) 11/05/18 11/06/18 11/07/18 11/08/18 05:59 05:59 05:59 05:59 Intake Total 6530 / 8271 5442 / 5442 4900 / 4900 Output Total 3150 / 3150 2400 / 2400 700 / 700 Balance 3380 / 5121 3042 / 3042 4200 / 4200
[2018-11-07] MEDS ORDERED: Prochlorperazine Edisylate Inj 10mg/2ml vial IVP PRN (23:03)
[2018-11-07] MEDS ORDERED: Ondansetron ODT Tab 4 MG TAB PO PRN (23:03)
[2018-11-07] MEDS ORDERED: oxyCODONE/APAP 7.5/325 Tab 1 TAB TAB PO PRN (23:03)
[2018-11-07] MEDS ORDERED: MAGNESIUM 400 MG/5 ML - 30 ML (MILK OF MAGNESIA) PO PRN ×2 (23:03)
[2018-11-07] MEDS ORDERED: PROMETHAZINE 25 MG/1 ML VIAL IM PRN (23:03)
[2018-11-07] MEDS ORDERED: HYDROcodone-APAP 10 MG-325 MG TABLET PO PRN (23:03)
[2018-11-07] MEDS ORDERED: DOCUSATE 100 MG CAPSULE PO PRN ×2 (23:03)
[2018-11-07] MEDS ORDERED: oxyCODONE-ACETAMINOPHEN 5-325 TAB PO PRN (23:03)
[2018-11-07] MEDS ORDERED: ONDANSETRON 4 MG/2 ML VIAL IVP PRN (23:03)
[2018-11-07] MEDS ORDERED: Fleet Enema 133ml RECTAL PRN ×2 (23:03)
[2018-11-07] MEDS ORDERED: SIMETHICONE 80 MG TABLET PO PRN (23:03)
[2018-11-07] MEDS ORDERED: Metoclopramide Inj 10 MG/2 ML VIAL IVP PRN (23:03)
[2018-11-07] MEDS ORDERED: HYDROcodone-APAP 5 MG -325 MG TABLET PO PRN (23:03)
[2018-11-07] MEDS ORDERED: MAGNESIUM CITRATE 296 ML SOLUTION PO PRN ×2 (23:03)
[2018-11-07] MEDS ORDERED: BISACODYL 5 MG TABLET PO PRN ×2 (23:03)
[2018-11-07] MEDS ORDERED: HYDROcodone-APAP 7.5 MG-325 MG TABLET PO PRN (23:03)
[2018-11-07] MEDS ORDERED: LIDOCAINE HCL 2 % 10 ML JELLY URO-JECT TOPICAL PRN (23:03)
[2018-11-07] MEDS: MORPHINE SULFATE 2 MG/1 ML IVP PRN (23:05)
[2018-11-08] MEDS: DIAZEPAM 10 MG/2 ML (5 MG/1 ML) CARPUJECT IVP PRN ×3 (00:14→13:43)
[2018-11-08] MEDS: Lactated Ringers 1,000 ML PRIMARY IV SCH ×3 (00:27→12:20)
[2018-11-08] MEDS: MORPHINE SULFATE 2 MG/1 ML IVP PRN ×2 (01:56→11:24)
[2018-11-08] MEDS: oxyCODONE/APAP 10/325 Tab 1 EACH TAB PO PRN ×5 (02:24→22:34)
--- NOTE | 2018-11-08 06:24 | NEURO.PROG ---
Subjective Post Op Day: 08/17 Pain Management: PO Jang Catheter: Yes Flatus: Yes Diet: Regular Ambulating: Yes Additional Details: On rounds this morning with Dr Trujillo Mr Moore is awake and alert, moving all extremities. He complains of some bilateral shoulder pain and stiffness and tenderness across his chest from prone positioning for surgery. He is afebrile and VSS His leg pain is improved from preop and he has good dorsi and plantar flexion strength. His feet are warm and he has good pulses bilaterally. His abdomen is soft and nontender. Dressing in place over abdominal incision. The prevena dressing is intact and functioning on his back incision. There is no drainage from his hemovac. Plan is to continue to mobilize, and to discontinue hemovac drain and jang catheter when he has been up out of bed and able to stand to use the urinal. Objective : Data - Labs CBC and BMP: 11/06/18 04:08 11/06/18 04:08 - Vital Signs Vital Signs and I&O: Vital Signs - Last Taken Temperature 98.4 F 11/08/18 04:26 Pulse Rate 84 11/08/18 04:26 Respiratory Rate 18 11/08/18 04:26 Blood Pressure 116/69 11/08/18 04:26 Pulse Ox 92 11/08/18 05:12 Intake and Output (24hr x 4 totals) 11/06/18 11/07/18 11/08/18 11/09/18 05:59 05:59 05:59 05:59 Intake Total 6530 / 8271 5442 / 5442 94354 / 06286 Output Total 3150 / 3150 2400 / 2400 4000 / 4000 Balance 3380 / 5121 3042 / 3042 6500 / 6500
[2018-11-08] MEDS: PANTOPRAZOLE 40 MG TABLET PO SCH ×3 (07:49→17:17)
[2018-11-08] MEDS ORDERED: VARENICLINE PO SCH (09:00)
[2018-11-08] MEDS: CITALOPRAM 20 MG TABLET PO SCH (10:12)
[2018-11-08] MEDS: ALLOPURINOL 300 MG TABLET PO SCH (10:13)
[2018-11-08] MEDS: ATENOLOL 25 MG TABLET PO SCH (10:13)
[2018-11-08] MEDS: GABAPENTIN 300 MG CAPSULE PO SCH ×4 (10:13→20:23)
[2018-11-08] MEDS: CHLORTHALIDONE 50 MG TABLET PO SCH (10:14)
[2018-11-08] MEDS: Multivitamin Tab 1 TAB PO SCH (10:14)
[2018-11-08] MEDS: buPROPion XL Tab 150 MG TAB PO SCH (10:15)
[2018-11-08] MEDS: Potassium Chloride Tab 10 MEQ TAB PO SCH (10:15)
[2018-11-08] MEDS: VARENICLINE PO SCH (10:16)
--- NOTE | 2018-11-08 11:02 | PDOC(PROG) ---
Date of Service: 11/08/18 Time of Service: 11:00 Interval History: No chest pain, shortness breath, nausea or vomiting. Back pain present but controlled. I want patient ambulate down the rudd with therapy and he did well. Catheter is going to be removed Objective : Data - Labs CBC and BMP: 11/06/18 04:08 11/06/18 04:08 Objective : Exam - General General Appearance: No Acute Distress, Cooperative Additional General Exam Details: Vital Signs - Last Taken Temperature 97 F 11/08/18 07:59 Pulse Rate 87 11/08/18 07:59 Respiratory Rate 18 11/08/18 07:59 Blood Pressure 138/82 11/08/18 07:59 Pulse Ox 97 11/08/18 07:59 - Eye Eye Exam: No Scleral Icterus - ENT ENT Exam: Mucous Membranes Moist - Neck Neck Exam: JVP is not Raised - Respiratory Respiratory Exam: Clear to Auscultation - Bilaterally, Breathing Non Labored - Cardiovascular Cardiovascular Exam: RRR, No Murmur, No Clicks, No Gallops, No Rubs, No JVD Additional Cardiovascular Details: Some blistering on his mid chest region from prone position and surgery yesterday. No erythema. - GI/Abdominal GI/Abdominal Exam: Normal Bowel Sounds, Non Tender, Non Distended, Soft Additional GI/Abdominal Exam Details: Incision is dressed, clean, dry, intact - Extremities Extremities Exam: No Clubbing Present, No Edema Present, No Cyanosis Present - Neurological Neurological Exam: Alert, Oriented x 3, No Facial Droop, Speech Intact / Clear, Moves All Extremities Equally Assessment and Plan - Patient Problems (1) CAD (coronary artery disease) Current Visit: Yes Status: Acute Code(s): I25.10 - Atherosclerotic heart disease of [place] coronary artery without angina pectoris Qualifiers: Coronary Disease-Associated Artery/Lesion type: [place] artery [place] vs. transplanted heart: [place] heart Associated angina: without angina Qualified Code(s): I25.10 - Atherosclerotic heart disease of [place] coronary artery without angina pectoris (2) HTN (hypertension) Current Visit: Yes Status: Acute Code(s): I10 - Essential (primary) h ypertension Qualifiers: Hypertension type: essential hypertension Qualified Code(s): I10 - Essential (primary) hypertension (3) Hypercholesterolemia Current Visit: Yes Status: Acute Code(s): E78.00 - Pure hypercholesterolemia, unspecified (4) Gouty arthropathy Current Visit: Yes Status: Acute Code(s): M10.9 - Gout, unspecified (5) Chronic back pain Current Visit: Yes Status: Acute Code(s): M54.9 - Dorsalgia, unspecified; G89.29 - Other chronic pain Qualifiers: Back pain location: low back pain Back pain laterality: unspecified Sciatica presence: with sciatica Sciatica laterality: sciatica laterality unspecified Qualified Code(s): M54.40 - Lumbago with sciatica, unspecified side; G89.29 - Other chronic pain (6) Hyperthyroidism Current Visit: Yes Status: Chronic Code(s): E05.90 - Thyrotoxicosis, unspecified without thyrotoxic crisis or storm (7) Status post lumbar surgery Current Visit: Yes Status: Acute Code(s): Z98.890 - Other specified postprocedural states - Assessment / Plan Additional Assessment/Plan Details: No chest pain. Will resume aspirin tomorrow. No change in other medical issues. PT and OT. Ambulate. As per neurosurgery in terms of disposition.
--- NOTE | 2018-11-08 12:07 | PT.PROG ---
Progress Note Progress Note: S. Patient stated he is stiff and sore from being in bed. O. Patient ambulated 150 feet around the nurses station and back to his room where he was left in the restroom with Nursing staff. A. Patient was able to ambulate with stand by guard assist. He would continue to benefit from skilled therapy to increase mobility and safety at this time. Patient is scheduled to perform stair training 11/08 PM. P. Continue POC.
[2018-11-08] MEDS: ATORVASTATIN 40 MG TABLET PO SCH ×2 (12:20→20:23)
[2018-11-08] MEDS: RAMIPRIL 2.5 MG CAPSULE PO SCH ×2 (12:20→20:23)
--- NOTE | 2018-11-08 14:47 | PT.PROG ---
Progress Note Progress Note: S. Patient stated that he is feeling alright this afternoon, he agreed to go for a walk. O. Patient ambulated 150 feet around the nurses station then ascended and descended 8 stairs. Patient returned to his room where he was left in his chair with alarm and call light. A. Patient tolerated ambulation and stair training well, he required stand by guard assist. He would continue to benefit from skilled therapy to increase mobility and safety at this time. P. Continue POC.
--- NOTE | 2018-11-08 15:00 | PT.PROG ---
Progress Note Progress Note: S. Patient stated he is very sore however agreed to do some exercises. O. Patient transferred to the edge of the bed where he performed seated long arc quads, heel toe raises, pillow squeezes all x 10 bilaterally, sit to stands x 3 and stood x 1 minute each time. Patient's wound was redressed with sterile kirlex packing, ABD pad and Idania Derm. Patient was left in bed with alarm and call light. A. Patient tolerated therapy fair, he was very sore and was unable to perform more exercise due to pain. the wound appeared clean with moderate amount of serous-sanguinous drainage with granulation tissue noted in wound bed, rodriguez wound looks clean with no signs and symptoms of infection. P. Continue POC.
[2018-11-08] MEDS: DIAZEPAM 10 MG TABLET PO PRN ×2 (17:17→23:33)
[2018-11-08] MEDS: CHANTIX 1 MG PO SCH (20:24)
[2018-11-09] MEDS: oxyCODONE/APAP 10/325 Tab 1 EACH TAB PO PRN ×5 (02:45→22:07)
[2018-11-09] MEDS: DIAZEPAM 10 MG TABLET PO PRN (05:26)
[2018-11-09] MEDS: PANTOPRAZOLE 40 MG TABLET PO SCH ×2 (06:50→17:55)
--- NOTE | 2018-11-09 07:24 | NEURO.PROG ---
Subjective Post Op Day: 4 Pain Management: PO Bello Catheter: No Flatus: Yes Diet: Regular Ambulating: Yes Additional Details: Mr Moore is awake and alert. He is afebrile and VSS. States his buttock pain with walking is gone as well as the thigh pain and tingling. Does report tingling persisting in his feet. His feet are warm and pulses are intact. His abdomen is non tender with bowel sounds. He ambulated with PT yesterday without difficulty and feels like he will be ready for discharge tomorrow. His hemovac had 70 ml sero sanguinous drainage. The Prevena dressing is intact and functioning on his back incision. His abdominal incision is dry and intact. Plan: Continue to continue to mobilize in preparation for discharge in AM Objective : Data - Labs CBC and BMP: 11/06/18 04:08 11/06/18 04:08 - Vital Signs Vital Signs and I&O: Vital Signs - Last Taken Temperature 98.7 F 11/09/18 05:00 Pulse Rate 96 11/09/18 05:00 Respiratory Rate 20 11/09/18 07:00 Blood Pressure 120/64 11/09/18 05:00 Pulse Ox 93 11/09/18 05:22 Intake and Output (24hr x 4 totals) 11/07/18 11/08/18 11/09/18 11/10/18 05:59 05:59 05:59 05:59 Intake Total 5442 / 5442 55033 / 08504 1180 / 1180 Output Total 2400 / 2400 4000 / 4000 3970 / 3970 Balance 3042 / 3042 6500 / 6500 -2790 / -2790
[2018-11-09] MEDS: CHLORTHALIDONE 50 MG TABLET PO SCH (09:31)
[2018-11-09] MEDS: GABAPENTIN 300 MG CAPSULE PO SCH ×3 (09:31→22:04)
[2018-11-09] MEDS: buPROPion XL Tab 150 MG TAB PO SCH (09:32)
[2018-11-09] MEDS: Multivitamin Tab 1 TAB PO SCH (09:33)
[2018-11-09] MEDS: ATENOLOL 25 MG TABLET PO SCH (09:33)
[2018-11-09] MEDS: ALLOPURINOL 300 MG TABLET PO SCH (09:33)
[2018-11-09] MEDS: CITALOPRAM 20 MG TABLET PO SCH (09:33)
[2018-11-09] MEDS: Potassium Chloride Tab 10 MEQ TAB PO SCH (09:33)
[2018-11-09] MEDS: ASPIRIN 81 MG (BABY) CHEWABLE TABLET PO SCH (09:34)
[2018-11-09] MEDS: CHANTIX 1 MG PO SCH ×2 (09:37→22:08)
--- NOTE | 2018-11-09 12:07 | PT.PROG ---
Progress Note Progress Note: S. Patient stated he is feeling better compared to yesterday, he agreed to go for a walk this morning. O. Patient performed log roll to exit bed then ambulated 300 feet around the nurses station. and back to his room, where he was left at the edge of bed with alarm and call light. A. Patient tolerated ambulation well, he was able to ambulate with stand by guard assist, he required min assist with log roll transfer however, he would continue to benefit from skilled therapy to increase mobility, endurance and safety at this time. P. Continue POC.
[2018-11-09 12:40] VITALS: RESP 20
--- NOTE | 2018-11-09 14:10 | PDOC(PROG) ---
Date of Service: 11/09/18 Time of Service: 14:08 Interval History: No chest pain. No shortness of breath. No nausea or vomiting. Moving bowels okay. Back pain well-controlled. Overall feels better. He states his last cardiac stent was placed in October 2011 and is not sure why he still on Plavix. He had been on aspirin and was switched back to Plavix that he bruises quite frequently and easily and is not very fond of being on Plavix therapy. Objective : Data - Labs CBC and BMP: 11/06/18 04:08 11/06/18 04:08 Objective : Exam - General General Appearance: No Acute Distress, Cooperative Additional General Exam Details: Vital Signs - Last Taken Temperature 97.5 F 11/09/18 12:39 Pulse Rate 95 11/09/18 12:39 Respiratory Rate 20 11/09/18 12:39 Blood Pressure 123/58 11/09/18 12:39 Pulse Ox 100 11/09/18 12:39 - Eye Eye Exam: No Scleral Icterus - ENT ENT Exam: Mucous Membranes Moist - Neck Neck Exam: JVP is not Raised - Respiratory Respiratory Exam: Clear to Auscultation - Bilaterally, Breathing Non Labored - Cardiovascular Cardiovascular Exam: RRR, No Murmur, No Clicks, No Gallops, No Rubs, No JVD - GI/Abdominal GI/Abdominal Exam: Normal Bowel Sounds, Non Tender, Non Distended, Soft Additional GI/Abdominal Exam Details: Incision on abdomen is clean, dry, intact, thu in place, no erythema. - Extremities Extremities Exam: No Clubbing Present, No Edema Present, No Cyanosis Present - Back Additional Back Exam Details: Incision is dressed with Prevana dressing - Neurological Neurological Exam: Alert, Oriented x 3, No Facial Droop, Speech Intact / Clear, Moves All Extremities Equally Assessment and Plan - Patient Problems (1) CAD (coronary artery disease) Current Visit: Yes Status: Acute Code(s): I25.10 - Atherosclerotic heart disease of [place] coronary artery without angina pectoris Qualifiers: Coronary Disease-Associated Artery/Lesion type: [place] artery [place] vs. transplanted heart: [place] heart Associated angina: without angina Qualified Code(s): I25.10 - Atherosclerotic heart disease of [place] coronary artery without angina pectoris (2) HTN (hypertension) Current Visit: No Status: Acute Code(s): I10 - Essential (primary) hypertension Qualifiers: Hypertension type: essential hypertension Qualified Code(s): I10 - Essential (primary) hypertension (3) Hypercholesterolemia Current Visit: No Status: Acute Code(s): E78.00 - Pure hypercholesterolemia, unspecified (4) Gouty arthropathy Current Visit: No Status: Acute Code(s): M10.9 - Gout, unspecified (5) Chronic back pain Current Visit: No Status: Acute Code(s): M54.9 - Dorsalgia, unspecified; G89.29 - Other chronic pain Qualifiers: Back pain location: low back pain Back pain laterality: unspecified Sciatica presence: with sciatica Sciatica laterality: sciatica laterality unspecified Qualified Code(s): M54.40 - Lumbago with sciatica, unspecified side; G89.29 - Other chronic pain (6) Hyperthyroidism Current Visit: No Status: Chronic Code(s): E05.90 - Thyrotoxicosis, unspecified without thyrotoxic crisis or storm (7) Status post lumbar surgery Current Visit: No Status: Acute Code(s): Z98.890 - Other specified postprocedural states - Assessment / Plan Additional Assessment/Plan Details: At this point, continue with aspirin, 81 mg by mouth daily. Stop Plavix. No other changes from hospitalist side, continue PT and OT. Disposition as per neurosurgery. It sounds like patient may be discharged tomorrow?
--- NOTE | 2018-11-09 16:07 | OT.PROG ---
Progress Note Progress Note: S: pt reported that he still wants to go home when he feels its appropriate and he is ready. O: pt was seen in his room today and completed LE/UE dressing mod INd as it took him longer to complete. A: pt participated well in OT today displaying ability corrine garments. He is probably no longer needed to be seen by OT at this time. P: Continue per POC.
--- NOTE | 2018-11-09 16:31 | PT.PROG ---
Progress Note Progress Note: S. Patient stated that he is feeling better this afternoon. O. Patient ambulated 150 feet around the nurses station then ascended and descended 8 stairs then ambulated 80 feet back to his room where he performed log roll to return to bed where he was left with alarm and call light. A. Patient tolerated ambulation and stair training well, he required mod assist with log roll this afternoon. He would benefit from one more session of therapy at this time. P. Continue POC.
--- NOTE | 2018-11-09 18:01 | NEURO.PROG ---
Subjective Post Op Day: 09/18 Pain Management: PO Bello Catheter: No Diet: Regular Ambulating: Yes Additional Details: Awake, alert, oriented. Sitting up in bed comfortably. Back pain better then pre-op. Right buttocks pain and tightness resolved. Leg symptoms resolved, but still some numbness in feet bilaterally. Right hand numbness since surgery improved. Likely discharge to home in am. Objective : Data - Labs CBC and BMP: 11/06/18 04:08 11/06/18 04:08 - Vital Signs Vital Signs and I&O: Vital Signs - Last Taken Temperature 99.8 F H 11/09/18 15:51 Pulse Rate 92 11/09/18 15:51 Respiratory Rate 20 11/09/18 15:51 Blood Pressure 121/61 11/09/18 15:51 Pulse Ox 96 11/09/18 15:51 Intake and Output (24hr x 4 totals) 11/07/18 11/08/18 11/09/18 11/10/18 05:59 05:59 05:59 05:59 Intake Total 5442 / 5442 51766 / 26568 1180 / 1180 980 / 980 Output Total 2400 / 2400 4000 / 4000 3970 / 3970 510 / 510 Balance 3042 / 3042 6500 / 6500 -2790 / -2790 470 / 470
[2018-11-09] MEDS: ATORVASTATIN 40 MG TABLET PO SCH (22:03)
[2018-11-09] MEDS: RAMIPRIL 2.5 MG CAPSULE PO SCH (22:04)
[2018-11-10 05:11] VITALS: BP 139/76; TEMP 97.5
[2018-11-10] MEDS: DIAZEPAM 10 MG TABLET PO PRN (07:13)
[2018-11-10] MEDS: PANTOPRAZOLE 40 MG TABLET PO SCH (07:13)
--- NOTE | 2018-11-10 07:49 | NEURO.PROG ---
Subjective Post Op Day: 10/19 Pain Management: PO Bello Catheter: No Flatus: Yes Diet: Regular Ambulating: Yes Additional Details: Mr Moore is awake and alert Afebrile, VSS The Prevena dressing is intact and functioning on his back incision and his abdominal incision is dry and intact. His abdomen is soft and non tender with good bowel sounds. Bilateral pulses are good and his feet are warm to the touch. He has strong dorsi and plantar flexion bilaterally He has walked with physical therapy and independently in the [place] and feels ready to go home Plan: Discharge home per hospitalist Objective : Data - Labs CBC and BMP: 11/06/18 04:08 11/06/18 04:08 - Vital Signs Vital Signs and I&O: Vital Signs - Last Taken Temperature 97.5 F 11/10/18 05:00 Pulse Rate 89 11/10/18 05:00 Respiratory Rate 20 11/10/18 05:00 Blood Pressure 139/76 11/10/18 05:00 Pulse Ox 93 11/10/18 05:36 Intake and Output (24hr x 4 totals) 11/08/18 11/09/18 11/10/18 11/11/18 05:59 05:59 05:59 05:59 Intake Total 34923 / 11806 1180 / 1180 2580 / 2580 Output Total 4000 / 4000 3970 / 3970 2360 / 2360 Balance 6500 / 6500 -2790 / -2790 220 / 220
[2018-11-10 08:19] VITALS: O2SAT 92
[2018-11-10] MEDS: ATENOLOL 25 MG TABLET PO SCH (09:11)
[2018-11-10] MEDS: CHLORTHALIDONE 50 MG TABLET PO SCH (09:12)
[2018-11-10] MEDS: ALLOPURINOL 300 MG TABLET PO SCH (09:12)
[2018-11-10] MEDS: buPROPion XL Tab 150 MG TAB PO SCH (09:13)
[2018-11-10] MEDS: GABAPENTIN 300 MG CAPSULE PO SCH (09:13)
[2018-11-10] MEDS: ASPIRIN 81 MG (BABY) CHEWABLE TABLET PO SCH (09:13)
[2018-11-10] MEDS: CITALOPRAM 20 MG TABLET PO SCH (09:13)
[2018-11-10] MEDS: Potassium Chloride Tab 10 MEQ TAB PO SCH (09:13)
[2018-11-10] MEDS: Multivitamin Tab 1 TAB PO SCH (09:13)
[2018-11-10] MEDS: CHANTIX 1 MG PO SCH (09:19)
--- NOTE | 2018-11-10 09:46 | DCSUMMARY ---
Hospitalization Summary Admit Date: 11/05/2018 Discharge Date: 11/10/18 Primary Diagnosis:: status post anterior-posterior lumbar surgery Hospital Course: This very pleasant 58-year-old male that presented for back surgery with Dr. Trujillo, he had an anterior and posterior approach staged and 2 surgeries, and presented initially for this on 11/05/2018. See his surgical notes for details of procedures performed. Postoperatively, the patient did very well and met his goals with physical therapy and occupational therapy, his pain was controlled. During the hospital stay, his medical problems remained stable with no evidence of exacerbations. We did stop Plavix and started aspirin for coronary artery disease. He has more than a year out from his prior stents. Today, no chest pain, no shortness breath, no nausea or vomiting. Ambulating well. "Ready to go home". Assessment and Plan: 1. As per discharge assessments noted 2. Disposition: Patient is discharged home. 3. Condition on discharge, stable and improved. 4. Diet: regular diet 5. Activities: resume normal activities as per neurosurgery instructions 6. Follow-Up: 1. Dr. Trujillo as scheduled 2. I suggested the patient visited his primary provider within 7 days as well 7. Medications at the Time of Discharge: Home Medications Medication Instructions Recorded Confirmed B-complex with vitamin C tablet 1 tab PO QDAY 08/29/18 11/02/18 allopurinol 300 mg tablet 300 mg PO QDAY 08/29/18 11/02/18 atenolol 25 mg tablet 25 mg PO QDAY 08/29/18 11/02/18 atorvastatin 40 mg tablet 40 mg PO QDAY 08/29/18 11/02/18 bupropion HCl XL 150 mg 24 hr 300 mg PO QAM tab 08/29/18 11/02/18 tablet, extended release chlorthalidone 25 mg tablet 25 mg PO QDAY 08/29/18 11/02/18 citalopram 10 mg tablet 20 mg PO QDAY tab 08/29/18 11/02/18 gabapentin 300 mg capsule 300 mg PO TID 08/29/18 11/02/18 multivitamin tablet 1 tab PO QAM 08/29/18 11/02/18 pantoprazole 40 mg tablet,delayed 40 mg PO BID 08/29/18 11/02/18 release potassium chloride ER 10 mEq 10 meq PO QDAY 08/29/18 11/02/18 tablet,extended release ramipril 5 mg capsule 5 mg PO QDAY 08/29/18 11/02/18 Aspirin Chewable Tab 81 mg PO DAILY@0900 #90 tab 11/10/18 Cyclobenzaprine HCl [Flexeril] 10 mg PO TID #60 tab 11/10/18 Varenicline 1 mg PO BID 11/10/18 oxyCODONE/APAP 10/325 Tab 1 - 2 ea PO Q4H PRN #60 tab 11/10/18 [Percocet 10/325 Tab] 8. Time, care, counseling and coordination of care for this discharge is less than 30 minutes. Exam - Vitals Vital Signs: Vital Signs Temperature 97.5 F Temperature Source Temporal Artery Scan Pulse Rate [Apical] 88 Pulse Rate [Pulse Oximeter] 89 Pulse Rate [Pulse Oximeter] 83 Pulse Rate 90 Respiratory Rate 20 Blood Pressure [Right Arm] 139/76 Blood Pressure [Left Arm] 138/82 Blood Pressure [Left Arm] 119/68 Blood Pressure 133/76 Pulse Ox 92 Oxygen Flow Rate 1 Oxygen Delivery Method Nasal Cannula Height 6 ft Weight 284 lb 3.2 oz - General General Appearance: No Acute Distress, Cooperative - Head Head Exam: Normal Inspection, Normocephalic, Atraumatic - Eye Eye Exam: POSITIVE: No Scleral Icterus - ENT ENT Exam: POSITIVE: Mucous Membranes Moist - Neck Neck Exam: JVP is not Raised - Respiratory Respiratory Exam: POSITIVE: Clear to Auscultation - Bilaterally, Breathing Non Labored - Cardiovascular Cardiovascular Exam: POSITIVE: RRR, No Murmur, No Clicks, No Gallops, No Rubs, No JVD - GI/Abdominal GI/Abdominal Exam: POSITIVE: Normal Bowel Sounds, Non Tender, Non Distended, Soft - Extremities Extremities Exam: POSITIVE: No Clubbing Present, No Edema Present, No Cyanosis Present - Neurological Neurological Exam: POSITIVE: Alert, Oriented x 3, Normal Gait, No Facial Droop, Speech Intact / Clear, Moves All Extremities Equally Data Peritnent Studies: 11/06/18 11/06/18 04:08 04:08 WBC 12.17 H Hgb 12.2 L Hct 37.7 L Plt Count 133 L Sodium 140 Potassium 4.1 Chloride 104 Carbon Dioxide 25 Anion Gap 11 BUN 14 Creatinine 0.8 Estimated GFR > 60 BUN/Creatinine Ratio 17.50 Glucose 134 H Calculated Osmolality 292.0 Calcium 8.2 L Patient Problems - Patient Problem List (1) Status post lumbar surgery Current Visit: No Status: Acute Code(s): Z98.890 - Other specified postprocedural states Category: Surgical (2) CAD (coronary artery disease) Current Visit: Yes Status: Acute Code(s): I25.10 - Atherosclerotic heart disease of [place] coronary artery without angina pectoris Qualifiers: Coronary Disease-Associated Artery/Lesion type: [place] artery [place] vs. transplanted heart: [place] heart Associated angina: without angina Qualified Code(s): I25.10 - Atherosclerotic heart disease of [place] coronary artery without angina pectoris Category: Medical (3) HTN (hypertension) Current Visit: No Status: Acute Code(s): I10 - Essential (primary) hypertension Qualifiers: Hypertension type: essential hypertension Qualified Code(s): I10 - Essential (primary) hypertension Category: Medical (4) Hypercholesterolemia Current Visit: No Status: Acute Code(s): E78.00 - Pure hypercholesterolemia, unspecified Category: Medical (5) Gouty arthropathy Current Visit: No Status: Acute Code(s): M10.9 - Gout, unspecified Category: Medical (6) Chronic back pain Current Visit: No Status: Acute Code(s): M54.9 - Dorsalgia, unspecified; G89.29 - Other chronic pain Qualifiers: Back pain location: low back pain Back pain laterality: unspecified Sciatica presence: with sciatica Sciatica laterality: sciatica laterality unspecified Qualified Code(s): M54.40 - Lumbago with sciatica, unspecified side; G89.29 - Other chronic pain Category: Medical (7) Hyperthyroidism Current Visit: No Status: Chronic Code(s): E05.90 - Thyrotoxicosis, unspecified without thyrotoxic crisis or storm Category: Medical (8) Tobacco abuse Current Visit: Yes Status: Acute Code(s): Z72.0 - Tobacco use Category: Medical
[2018-11-10] MEDS: oxyCODONE/APAP 10/325 Tab 1 EACH TAB PO PRN (10:29)
--- NOTE | 2018-11-10 11:19 | PT.PROG ---
Progress Note Progress Note: s. Patient stated he is feeling better this morning, he reported he feels he is ready to go home. O. Patient ambulated 300 feet around the nurses station and back to his room where he was left in bed with nursing staff. A. patient tolerated ambulation well, he continues to require min assist with transferring back into bed, however instructed family on proper transfers and safety. P Patient has met all goals at this time.
== END 2018-11-10 10:38 | disposition home or self-care (01) | DRG 460 ==
LOC: OPS 05:49 → MED/SURG 13:23 → OPS 11-07 10:49 → MED/SURG 11-07 22:28
PROVIDERS: ADMIT Neurological Surgery; ATTEND Neurological Surgery